=== PATIENT | male | born 1950 | race Caucasian/White ===

== ENCOUNTER → 2020-09-02 14:27 | Outpatient (CLI) | payer MEDICARE, SELFPAY ==
--- NOTE | 2020-09-02 14:30 | CT_ITS ---
STUDY: CT SCAN RIGHT SHOULDER REASON FOR EXAM: Male, 70 years old. PRIMARY OSTEOARTHRITIS RADIATION DOSAGE (If Supplied By Facility): CTDIvol = ( 26.22 ) mGy, DLP = ( 646.32 ) mGycm. Individualized dose optimization techniques were used for this CT.? TECHNIQUE: Axial multidetector CT scan of the right shoulder. Coronal and sagittal reformatted images. COMPARISON: None. FINDINGS: No acute fracture, dislocation or osseous destruction. Osteopenia. Mild/moderate glenohumeral joint arthrosis with mild productive changes at the glenoid. Mild/moderate acromioclavicular joint arthrosis. Anterior interval narrowing. Moderate cervical spine osteoarthritis. Mild thoracic spine osteoarthritis. Normal sternoclavicular joint. Ribs intact. COPD with mild paraseptal emphysematous change. Minimal scar/atelectasis. Cardiomegaly with valve calcification and coronary artery disease. CT/Extremity Upper without Contra IMPRESSION: Mild/moderate glenohumeral and AC joint osteoarthritis Anterior interval narrowing/potential impingement Electronically Signed: rTisten Hogue DO at 9:17 EST Tel , Service support ,
== END ==
PROVIDERS: PCP Nurse Practitioner Family; Referring Provider Specialist; Visit Provider Specialist
DX: M19.011 Primary osteoarthritis, right shoulder (principal)
CPT/HCPCS: 73200

== ENCOUNTER → 2024-08-29 | Outpatient (CLI) | payer MEDICARE, SELFPAY ==
[2024-08-30 14:08] LABS: Immunoglobulin A 70 mg/dL (61-437); t-Transglutaminase IgA <2 U/mL (0-3)
== END | disposition home or self-care (01) ==
LOC: LAB 11:27
PROVIDERS: PCP Nurse Practitioner Family; Referring Provider Nurse Practitioner Acute Care; Visit Provider Nurse Practitioner Acute Care
DX: R19.7 Diarrhea, unspecified (principal); R14.0 Abdominal distension (gaseous); R10.9 Unspecified abdominal pain; R19.12 Hyperactive bowel sounds
CPT/HCPCS: 36415; 82784; 83516

== ENCOUNTER → 2024-09-04 | Outpatient (CLI) | payer MEDICARE, SELFPAY ==
[2024-09-06 08:09] LABS: Calprotectin, Stool 100 ug/g (0-120)
[2024-09-07 03:07] LABS: Pancreatic Elastase, Fecal 343 (>200)
== END | disposition home or self-care (01) ==
LOC: LAB 10:19
PROVIDERS: PCP Nurse Practitioner Family; Referring Provider Nurse Practitioner Acute Care; Visit Provider Nurse Practitioner Acute Care
DX: R19.7 Diarrhea, unspecified (principal); R14.0 Abdominal distension (gaseous); R10.9 Unspecified abdominal pain; R19.12 Hyperactive bowel sounds
CPT/HCPCS: 82653; 83993

== ENCOUNTER 2024-11-27 10:36 | Day surgery (SDC) | payer MEDICARE, SELFPAY ==
[2024-11-27] VITALS (8 sets, daily range): BP systolic 96–149; BP diastolic 61–74; PULSE 65–78; RESP 16–20; TEMP 36.3–36.7; O2SAT 96–100; BMI 23.1
[2024-11-27] MEDS: Lactated Ringers 1,000 ML 15 ML IV (11:19)
--- NOTE | 2024-11-27 11:39 | PRE.ANES_ITS ---
ASA Classification* ASA Classification ASA Classification: 2 (HTN, GERD, Asthma, hard of hearing ) Assessment & Plan Anesthesia* Anesthesia Assessment Anesthesia Assessment: Discussed sedation and/or anesthesia options, risks, benefits, and alternatives with patient/parents/legal guardian/POA. Questions invited. The patient/parents/legal guardian/POA seems to understand and agrees to proceed with anesthesia plan. Reviewed the physical assessment, medical history, allergy history and patient home medications list prior to surgery/procedure/anesthetic and documented any changes. Performed airway and anesthesia risk assessments. Anesthesia Type Anesthesia Type: General History Source History Obtained from:: Patient and Chart Anesthesia Focused Assessment* Temperature: 97.6 F Pulse Rate: 69 Blood Pressure: 149/73 Respiratory Rate: 16 Pulse Ox: 100 Oxygen Delivery Method: Room Air Airway Assessment Mouth opens: >3 cm Mallampati Score: II Teeth Condition: Missing (edentulous) Neck Range of motion (ROM): Full ROM Focused Labs Anesthesia Preop lab: CBC WBC 7.3 K/mm3 (4.4-11.0) 11/13/16 10:11 11/13/16 RBC 5.13 M/mm3 (4.6-6.2) 11/13/16 10:11 11/13/16 Hgb 12.1 g/dl (13.0-16.5) L 11/13/16 10:11 7 Hct 39.6 % (40-54) L 11/13/16 10:11 11/13/16 Plt Count 358 K/mm3 (150-450) 11/13/16 10:11 11/13/16 CHEMISTRY Potassium 4.4 mmol/L (3.5-5.1) 11/13/16 10:11 11/13/16 Sodium 140 mmol/L (136-145) 11/13/16 10:11 11/13/16 BUN 13 mg/dL (7-18) 11/13/16 10:11 11/13/16 Creatinine 1.23 mg/dL (0.70-1.30) 11/13/16 10:11 11/13/16 Glucose 112 mg/dL (70-110) H 11/13/16 10:11 11/13/16 COAG Pre-Assessment Diagnosis/Proposed Procedure Planned Operative Procedure(s): FLEX SIGMOID Anesthesia History Anesthesia History - basketball scout: Anesthesia History - basketball scout Hx Hospitalization No 11/22/24 14:23 Any Problems With Anesthesia No 11/22/24 14:23 Cholinesterase deficiency No 11/22/24 14:23 You/Your Family Experience No 11/22/24 14:23 fever (hyperthermia) with Relationship Recent Exposure to Contagious No 11/27/24 11:05 Disease Does patient have nerve No 11/22/24 14:23 stimulator Patient instructed to have device shut off --Does patient have Pacemaker No 11/27/24 11:05 or ICD? When Was Last Pacemaker Check QUESTION #4 FULL TEXT: You/Your Family Experience fever (hyperthermia) with Anesthesia Last Oral Intake Last Oral intake: Last Oral Intake NPO since 21:00 11/27/24 11:05 Meds taken in AM with sips of Yes 11/27/24 11:05 water? Meds patient instructed to take am of surgery PONV PONV - basketball scout: PONV - basketball scout Female No 11/22/24 14:23 HX of Motion Sickness No 11/22/24 14:23 HX of N/V After Surgery No 11/22/24 14:23 Non-Smoker Yes 11/22/24 14:23 Duration of Surgery greater No 11/22/24 14:23 than 60 minutes Number of Risk Factors 1 11/22/24 14:23 PONV Score Low Risk 11/22/24 14:23 Height & Weight Height & Weight: Anesthesia: Height & Weight Height 5 ft 7 in 11/27/24 11:05 Weight: 67 kg 11/27/24 11:05 Body Mass Index (BMI) 23.1 11/27/24 11:05 Respiratory Assessment Respiratory Assessment - basketball scout: Respiratory Tract Infection Hx - basketball scout Hx Respiratory Tract Infection No 11/22/24 14:23 STOP Sleep Apnea STOP Sleep Apnea - basketball scout: STOP Sleep Apnea - basketball scout Hx Hypertension Yes 11/22/24 14:23 Hx Sleep Apnea No 11/22/24 14:23 CPAP BIPAP Do you snore loudly (louder No 11/22/24 14:23 than talking or can be heard Do you often feel tired/ No 11/22/24 14:23 fatigued/ sleepy during daytime? Has anyone observed you stop No 11/22/24 14:23 breathing during sleep? STOP Results Negative 11/22/24 14:23 QUESTION #5 FULL TEXT : Do you snore loudly (louder than talking or can be heard through closed doors)? 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 Specify any problems Hx of Preganancy in last 3 N/A 11/22/24 14:23 Months Nurse Filling Out Transfusion VCHRISTIN 11/22/24 14:23 & Questions: Date: 11/22/24 11/22/24 14:23 Time: 14:23 11/22/24 14:23 Patient unable to answer at this time (ie. confused, unrespo /Reproduction History /Reproductive History - basketball scout: /Reproductive Hx- basketball scout Hx Now Gestational Age (in weeks): EDC: Hx Hx Para Hx Section SAB Active Medications Active Medications: Current Medications Generic Name Dose Route Start Last Admin Trade Name Freq PRN Reason Stop Dose Admin Lactated Ringer's 1,000 mls @ 15 mls/hr 11/27/24 10:45 IV .Q48H JUANA PFSH Medical History (Updated 10/27/24 @ 14:59 by Alla Tucker) Wears hearing aid Anxiety Difficulty swallowing Difficulty chewing Heartburn Gastric reflux Former smoker History of stress test History of echocardiogram GERD (gastroesophageal reflux disease) Hypertension QUINAULT (hard of hearing) Emphysema of lung Back problem Asthma Arthritis Home Medications ?Medication ?Instructions ?Recorded ?Last Taken ?Type acetaminophen 325 mg tablet 650 mg PO BID 08/29/24 Unk nown History (Tylenol) amlodipine 10 mg tablet 10 mg PO QDAY 08/29/2411/27 09:30 History aspirin 81 mg tablet,delayed 81 mg PO QDAY 08/29/24 History release atorvastatin 40 mg tablet 40 mg PO QDAY 08/29/24 Unkno wn History cholestyramine (with sugar) 4 gram 4 g PO BID #60 ea 0 08/29/24 Unknown Rx powder for susp in a packet (Questran) famotidine 40 mg tablet 40 mg PO BID 08/29/24 09:30 History multivitamin 1 tab PO QAM 08/29/24 Unknow n History paroxetine HCl 20 mg tablet 20 mg PO QDAY 08/29/24 Unk nown History prasterone (DHEA) 50 mg tablet 25 mg PO QDAY 08/29/24 Unknown History (DHEA) Allergy/AdvReac Type Severity Reaction Status Date / Time No Known Allergies Allergy Verified 11/27/24 11:04 Family History (Updated 08/29/24 @ 09:55 by Maia Turner) Mother Alcoholism Brother Cancer Diabetes Hypertension Sister Hypertension Myocardial infarction Cancer Father Asthma Arthritis Surgical History (Updated 10/27/24 @ 14:52 by Alla Tucker) History of back surgery History of esophageal surgery History of shoulder replacement History of cholecystectomy Social History (Updated 08/29/24 @ 09:52 by Maia Turner) Smoking Status: Former smoker alcohol intake: never substance use type: does not use what type of physical activity do you participate in: walking Review of Systems (Anesthesia) ROS Narrative System reviewed and no additional complaints, except as documented. Physical Exam Const alert, oriented x3 and average body habitus Resp normal respiratory effort, normal air movement and clear to auscultation bilaterally Cardio regular rate, regular rhythm, no murmurs and diaphoretic
--- NOTE | 2024-11-27 12:15 | COLBX_PTH ---
PATIENT: AYANA BELLE LOC: EN U#:[id number] AGE/SX: 74/M ROOM: RE11/27/[address]: Dr. Kimani Augustin DO : 1950 BED: DIS: 11/27/2024 SPEC #: [id number] RECD: 11/27/24 14:12 STATUS: MARIA R REKwabena #: [id number] BASIL: 11/27/24 12:[address]: Kimani Augustin DEPT: SURGICAL PATHOLOGY RECD BY: Angel Rodgers ENTERED: 11/27/24 14:36 SP TYPE: COLON BX THONY DR: Dr. Calli Agudelo MD Tissues: A - Sigmoid colon biopsy Procedures: Surgery Specimen Level IV HEADER OPERATION: Flexible sigmoidoscopy with biopsy PRE-OP DIAGNOSIS: Diarrhea, bloating, abdominal pain, generalized abdominal pain, hyperactive bowel sounds TISSUE SUBMITTED: A- Recto-sigmoid biopsy MICROSCOPIC DIAGNOSIS A. Colon, rectosigmoid junction, biopsy: Polypoid fragments of colonic mucosa with prolapse features. MICROSCOPIC DESCRIPTION Slides are reviewed. GROSS DESCRIPTION A. Received in formalin in a container labeled with the patient's name, date of , and rectosigmoid biopsy are multiple powell-pink fragments of mucosal tissue measuring 1.0 x 0.5 x 0.3 cm in aggregate. Submitted in toto in A1. [facility] 11-27-2024 CPT:06667
--- NOTE | 2024-11-27 12:50 | PCM.HP.STD ---
HPI - General General Date of Admission: 11/27/24 Date of Service: 11/27/24 Chief Complaint: diarrhea HPI Narrative AYANA BELLE, is a 74 M who presents with the of Chief Complaint: diarrhea COLON & EGD 05/08/2024 ([place]) No appreciable stomach. It appears as though the small bowel is anastomosed directly to the esophagus. No other abnormalities appreciated on upper endoscopy. Bowel prep was good. No abnormalities appreciated in the colon. Sigmoid diverticulosis. I recommend a repeat colonoscopy in 3 years secondary to a history of adenomatous polyps. EGD 2018 Upon approaching the lower esophagus and GE junction, it was noted that the patient did have llirglai-kd-ntspej esophagitis. The scope was advanced into the stomach and the patient was appreciated to have a history of gastric bypass; however, there were no abnormalities appreciated along the stephan limbs. Because of his prior history of Steiner's esophagus, the scope was pulled back to the level of the GE junction where random 4 quadrant cold grasp biopsies were obtained. After this, the scope was pulled back approximately 1 to 2 cm and cold grasp biopsies were obtained from the lower esophagus in the areas of esophagitis. The scope was the advanced back into the stomach and the remnant was desufflated and the scope was then slowly withdrawn. ABD US 04/05/2024 normal GB, CBD 3cm - he reports a h/o CCX 10 years ago 74y/o male presents for consultation with complaints of abdominal pain and diarrhea. He underwent colonoscopy and EGD 05/08/2024 and revealed sigmoid diverticulosis. No biopsies were collected to r/o celiac sprue or microscopic colitis. Stool cultures and C. Diff were negative 04/05/2024. Stool culture and C. 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 - denies taking any non-steroidal medications - no improvement with Imodium - he is having episodes of fecal incontinence - waking 3-4x a night with diarrhea - eat and goes right through him - sometimes cannot make it through a meal - worse the past year - failed dicyclomine and Imodium - occasional dizziness with standing Sigstad score The Sigstad diagnostic score system is used to determine dumping syndrome versus non-dumping syndrome. A score greater than 7 suggests dumping. A score less than 4 is suggest other diseases. Sigstad score Shock +5 Fainting,?syncope,?unconsciousness +4 Desire to lie or sit down +4 Breathlessness,?dyspnea +3 Weakness, exhaustion +3 Sleepiness,?drowsiness,?apathy, falling asleep +3 Palpitation +3 Restlessness +2 Dizziness +2 Headaches +1 Feeling of warmth,?sweating,?pallor,?clammy?skin changes +1 Nausea +1 Abdominal?fullness, meteorism +1 Borborygmus +1 Eructation +1 Vomiting +4 Dizziness +2 Borborygmus +1 Dyspnea +3 --------Score 6 R [facility] Medical History (Updated 10/27/24 @ 14:59 by Alla Tucker) Wears hearing aid Anxiety Difficulty swallowing Difficulty chewing Heartburn Gastric reflux Former smoker History of stress test History of echocardiogram GERD (gastroesophageal reflux disease) Hypertension [place] (hard of hearing) Emphysema of lung Back problem Asthma Arthritis Home Medications ?Medication ?Instructions ?Recorded ?Last Taken ?Type acetaminophen 325 mg tablet 650 mg PO BID 08/29/24 Unknown History (Tylenol) amlodipine 10 mg tablet 10 mg PO QDAY 08/29/24 11/27/24 09:30 History aspirin 81 mg tablet,delayed 81 mg PO QDAY 08/29/24 11/26/24 History release atorvastatin 40 mg tablet 40 mg PO QDAY 08/29/24 Unknown History cholestyramine (with sugar) 4 gram 4 g PO BID #60 ea 08/29/24 Unknown Rx powder for susp in a packet (Questran) famotidine 40 mg tablet 40 mg PO BID 08/29/24 11/27/24 09:30 History multivitamin 1 tab PO QAM 08/29/24 Unknown History paroxetine HCl 20 mg tablet 20 mg PO QDAY 08/29/24 Unknown History prasterone (DHEA) 50 mg tablet 25 mg PO QDAY 08/29/24 Unknown History (DHEA) Allergy/AdvReac Type Severity Reaction Status Date / Time No Known Allergies Allergy Verified 11/27/24 11:04 Family History (Updated 08/29/24 @ 09:55 by Maia Turner) Mother Alcoholism Brother Cancer Diabetes Hypertension Sister Hypertension Myocardial infarction Cancer Father Asthma Arthritis Surgical History (Updated 10/27/24 @ 14:52 by Alla Tucker) History of back surgery History of esophageal surgery History of shoulder replacement History of cholecystectomy Social History (Updated 08/29/24 @ 09:52 by Maia Turner) Smoking Status: Former smoker alcohol intake: never substance use type: does not use what type of physical activity do you participate in: walking ROS Constitutional Constitutional: Denies fatigue, fever(s), poor appetite, weight gain or weight loss Gastrointestinal Gastrointestinal: Denies belching, bloating, change in bowel habits, change in stool character, chewing difficulty, coffee ground emesis, constipation, cramping, diarrhea, dyspepsia, dysphagia, early satiety, excessive flatus, fecal incontinence, heartburn, hematemesis, hematochezia, hemorrhoids, loose stools, melena, nausea, odynophagia, rectal bleeding, tenesmus, vomiting or weight changes Vital Signs Vital Signs Vital Signs: 11/27/24 11:05 11/27/24 11:05 11/27/24 11:41 Temperature 97.6 F L 97.6 F L Temperature Source Temporal Pulse Rate 69 69 Respiratory Rate 16 16 Respiratory Pattern Normal Blood Pressure 149/73 H 149/73 H Blood Pressure Mean 98 Blood Pressure Source Monitor Blood Pressure Position Semi-Fowlers Blood Pressure Location Left Arm Pulse Ox 100 100 Oxygen Delivery Method Room Air Room Air Weight Weight: 147 lb 11.355 oz Body Mass Index (BMI) 23.1 Physical Exam Const alert, oriented x3 and average body habitus Resp normal respiratory effort, normal air movement and clear to auscultation bilaterally Cardio regular rate, regular rhythm, no murmurs and diaphoretic Assessment & Plan Assessment/Plan (1) Diarrhea: QUALIFIERS: Diarrhea type: unspecified type Qualified Code(s): R19.7 - Diarrhea, unspecified (2) Bloating: (3) Abdominal pain: QUALIFIERS: Abdominal location: generalized Qualified Code(s): R10.84 - Generalized abdominal pain (4) Hyperactive bowel sounds: PLAN: Assessment and Plan Assessment and Plan (1) Diarrhea: Status: Acute Qualifiers: Diarrhea type: unspecified type Qualified Code(s): R19.7 - Diarrhea, unspecified (2) Bloating: Status: Acute (3) Abdominal pain: Status: Acute Qualifiers: Abdominal location: generalized Qualified Code(s): R10.84 - Generalized abdominal pain (4) Hyperactive bowel sounds: Status: Acute (5) Barretts esophagus: Status: Acute Qualifiers: Steiner's esophagus type: without dysplasia Qualified Code(s): K22.70 - Steiner's esophagus without dysplasia Plan: Repeat EGD April 2027 (6) Personal history of colonic polyps: Status: Acute Plan: Repeat Colonoscopy April 2027 due to h/o adenomatous polyps Orders: Orders Calprotectin, Stool Today R10.9 - Unspecified abdominal pain, R14.0 - Abdominal distension (gaseous), R19.12 - Hyperactive bowel sounds, R19.7 - Diarrhea, unspecified t-Transglutaminase IgA Today R10.9 - Unspecified abdominal pain, R14.0 - Abdominal distension (gaseous), R19.12 - Hyperactive bowel sounds, R19.7 - Diarrhea, unspecified Immunoglobulin A Today R10.9 - Unspecified abdominal pain, R14.0 - Abdominal distension (gaseous), R19.12 - Hyperactive bowel sounds, R19.7 - Diarrhea, unspecified Abdomen/Pelvis WITH Contrast Today R10.9 - Unspecified abdominal pain, R14.0 - Abdominal distension (gaseous), R19.12 - Hyperactive bowel sounds, R19.7 - Diarrhea, unspecified Pancreatic Elastase, Fecal Today R10.9 - Unspecified abdominal pain, R14.0 - Abdominal distension (gaseous), R19.12 - Hyperactive bowel sounds, R19.7 - Diarrhea, unspecified Miscellaneous Lab Procedure Today R10.9 - Unspecified abdominal pain, R14.0 - Abdominal distension (gaseous), R19.12 - Hyperactive bowel sounds, R19.7 - Diarrhea, unspecified Medications: New cholestyramine (with sugar) 4 gram (Questran) administer w/meal; avoid other meds within 1hr before or 4-6hr after dose 4 grams PO BID 60 ea 1RF Plan He complains of frequent watery diarrhea, fecal incontinence, abdominal bloating, hyperactive bowel sounds and generalized abdominal discomfort. His weight is stable and labs completed April 2024 are not suggestive of malnutrition, vitamin deficiencies or dehydration (Na 146, K+ 4.1, Creat 1.23, Albumin 3.4). His most recent EGD was suggestive of history of total gastrectomy. 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 Colonoscopy was recently unremarkable. I have ordered additional serologies, stool testing and CT A&P. He will schedule Sigmoidoscopy for biopsies to r/o microscopic colitis. I have prescribed cholestyramine BID to trial in the interim. We have also discussed dietary modifications. Patient Instructions: Sigmoidoscopy - biopsy for microscopic colitis Fecal Fat/Weight, Fecal Calprotectin, Fecal Elastase TTG IgA, IgA Total CT A&P - he will complete at [place] Avoid fatty/fried foods Small meals 4-6x a day, avoid large meals High protein/fiber, avoid simple carbohydr
--- NOTE | 2024-11-27 13:16 | OP.FLEXSIG_ITS ---
Patient Name: Boby Gould Procedure Date: 11/27/2024 1:04 PM Date of : 1950 Age: 74 Procedure: Flexible Sigmoidoscopy Indications: Clinically significant diarrhea of unexplained origin Providers: Kimani Augustin DO Referring MD: Calli Agudelo Md Medicines: Monitored Anesthesia Care Patient Profile: This is a 74 year old male. Refer to note in patient chart for documentation of history and physical. Last Colonoscopy: more than 3 years ago. Complications: No immediate complications. Procedure: Pre-Anesthesia Assessment: - Prior to the procedure, a History and Physical was performed, and patient medications and allergies were reviewed. The patient is competent. The risks and benefits of the procedure and the sedation options and risks were discussed with the patient. All questions were answered and informed consent was obtained. Patient identification and proposed procedure were verified by the physician in the pre-procedure area. Mental Status Examination: alert and oriented. Airway Examination: normal oropharyngeal airway and neck mobility. Respiratory Examination: clear to auscultation. CV Examination: normal. ASA Grade Assessment: III - A patient with severe systemic disease. After reviewing the risks and benefits, the patient was deemed in satisfactory condition to undergo the procedure. The anesthesia plan was to use monitored anesthesia care (MAC). Immediately prior to administration of medications, the patient was re-assessed for adequacy to receive sedatives. The heart rate, respiratory rate, oxygen saturations, blood pressure, adequacy of pulmonary ventilation, and response to care were monitored throughout the procedure. The physical status of the patient was re-assessed after the procedure. After obtaining informed consent, the endoscope was passed under direct vision. Throughout the procedure, the patient's blood pressure, pulse, and oxygen saturations were monitored continuously. The Colonoscope was introduced through the anus and advanced to the descending colon. The flexible sigmoidoscopy was accomplished without difficulty. The patient tolerated the procedure well. The quality of the bowel preparation was fair. Scope In: 1:08:55 PM Scope Out: 1:11:04 PM Total Procedure Duration Time 0 hours 2 minutes 9 seconds Findings: The perianal and digital rectal examinations were normal. An area of mildly congested mucosa was found in the rectum, in the recto-sigmoid colon and in the sigmoid colon. Biopsies were taken with a cold forceps for histology. Verification of patient identification for the specimen was done. Estimated blood loss was minimal. A few small-mouthed diverticula were found in the recto-sigmoid colon, sigmoid colon and descending colon. Impression: - Preparation of the colon was fair. - Congested mucosa in the rectum, in the recto-sigmoid colon and in the sigmoid colon. Biopsied. - Diverticulosis in the recto-sigmoid colon, in the sigmoid colon and in the descending colon. Recommendation: - Use fiber, for example Citrucel, Fibercon, Konsyl or Metamucil. Procedure Code(s): --- Professional --- 14338, Sigmoidoscopy, flexible; with biopsy, single or multiple CPT copyright 2021 [employer]. All rights reserved. The codes documented in this report are preliminary and upon microbiology quality control technician review may be revised to meet current compliance requirements. Kimani Augustin DO 11/27/2024 1:16:22 PM This report has been signed electronically. Number of Addenda: 0 Note Initiated On: 11/27/2024 1:04 PM
--- NOTE | 2024-11-27 13:17 | OP.CCLET_ITS ---
11/27/2024 Calli Agudelo Md Re : Flexible Sigmoidoscopy procedure for Boby Gould Dear Magnus This procedure was performed on Wednesday, November 27, 2024. My impressions and recommendations are as follows: Impressions : - Preparation of the colon was fair. - Congested mucosa in the rectum, in the recto-sigmoid colon and in the sigmoid colon. Biopsied. - Diverticulosis in the recto-sigmoid colon, in the sigmoid colon and in the descending colon. Recommendations : - Use fiber, for example Citrucel, Fibercon, Konsyl or Metamucil. My findings are described in the full procedure note, which is enclosed. If I can be of further assistance, please feel free to contact me at . Sincerely, Kimani Augustin, 11/27/2024 1:16:22 PM This report has been signed electronically.
--- NOTE | 2024-11-27 13:20 | PCM.POST.ANE ---
Anesthesia: Postop Eval I Current Vital Signs Temperature: 97.9 F Pulse Rate: 65 Blood Pressure: 96/67 Respiratory Rate: 20 Pulse Ox: 98 Oxygen Delivery Method: Room Air Assessment Airway patent: Yes Spontaneous unlabored respirations: Yes Mental status: Awake nausea: No Vomiting: No Anesthesia Complication: No Fluid Hydration Crystalloid volume administer (ml): 500 Total IV fluid infused: 500 Progress Note Anesthesia document: Postop Eval 1 completed: Yes
--- NOTE | 2024-11-27 16:06 | POSTOPAN2_ITS ---
Anesthesia Postop Eval I Sum Postop Eval Completion status Anesthesia document: Postop Eval 1 completed: Yes Anesthesia Postop Eval I Summary Anesthesia Postop Eval I Summary: Anesthesia Postop Eval I: Assessment Summary Airway patent Yes 11/27/24 13:21 GAME PRESERVE MANAGER.JDEF Spontaneous unlabored Yes 11/27/24 13:21 GAME PRESERVE MANAGER.JDEF respirations Mental status Awake 11/27/24 13:21 GAME PRESERVE MANAGER.JDEF nausea No 11/27/24 13:21 GAME PRESERVE MANAGER.JDEF Vomiting No 11/27/24 13:21 GAME PRESERVE MANAGER.JDEF Anesthesia Postop Eval I: Fluid Summary Crystalloid volume administer 500 11/27/24 13:21 GAME PRESERVE MANAGER.JDEF (ml) Colloids volume administered ( ml) Blood Product volume administered (ml) Total IV fluid infused 500 11/27/24 13:21 GAME PRESERVE MANAGER.JDEF Anesthesia Postop Eval I: Summary Notes Anesthesia Complication No 11/27/24 13:21 GAME PRESERVE MANAGER.JDEF Anesthesia Complication Comment: Post-operative progress note Anesthesia: Postop Eval II Evaluation Mental status: Awake Pain Level: 0 nausea: No Vomiting: No Complications Anesthesia Complication: No
--- NOTE | 2024-11-27 16:06 | PCM.POSTANE2 ---
Anesthesia Postop Eval I Sum Postop Eval Completion status Anesthesia document: Postop Eval 1 completed: Yes Anesthesia Postop Eval I Summary Anesthesia Postop Eval I Summary: Anesthesia Postop Eval I: Assessment Summary Airway patent Yes 11/27/24 13:21 MINIATURE SET DESIGNER.JDEF Spontaneous unlabored Yes 11/27/24 13:21 MINIATURE SET DESIGNER.JDEF respirations Mental status Awake 11/27/24 13:21 MINIATURE SET DESIGNER.JDEF nausea No 11/27/24 13:21 MINIATURE SET DESIGNER.JDEF Vomiting No 11/27/24 13:21 MINIATURE SET DESIGNER.JDEF Anesthesia Postop Eval I: Fluid Summary Crystalloid volume administer 500 11/27/24 13:21 MINIATURE SET DESIGNER.JDEF (ml) Colloids volume administered ( ml) Blood Product volume administered (ml) Total IV fluid infused 500 11/27/24 13:21 MINIATURE SET DESIGNER.JDEF Anesthesia Postop Eval I: Summary Notes Anesthesia Complication No 11/27/24 13:21 MINIATURE SET DESIGNER.JDEF Anesthesia Complication Comment: Post-operative progress note Anesthesia: Postop Eval II Evaluation Mental status: Awake Pain Level: 0 nausea: No Vomiting: No Complications Anesthesia Complication: No
== END 2024-11-27 13:58 | disposition home or self-care (01) ==
LOC: EN 10:40 → AC 10:41
PROVIDERS: PCP Student in an Organized Health Care Education/Training Program; Referring Provider Student in an Organized Health Care Education/Training Program; Visit Provider Internal Medicine Gastroenterology
PROC: 0DJD8ZZ Inspection of Lower Intestinal Tract, Via Natural or Artificial Opening Endoscopic (ICD-10-PCS; CPT 45330; principal; 2024-11-27 12:10)
DX: K57.30 Diverticulosis of large intestine without perforation or abscess without bleeding (principal); J43.9 Emphysema, unspecified; R19.7 Diarrhea, unspecified; K21.00 Gastro-esophageal reflux disease with esophagitis, without bleeding; R14.0 Abdominal distension (gaseous); R42 Dizziness and giddiness; K22.70 Barrett's esophagus without dysplasia; R10.84 Generalized abdominal pain; R15.9 Full incontinence of feces; I10 Essential (primary) hypertension; Z79.82 Long term (current) use of aspirin; Z87.891 Personal history of nicotine dependence; Z86.0101 Personal history of adenomatous and serrated colon polyps
CPT/HCPCS: 45331; 88305; J2405